=== PATIENT | male | born 1965 | race Caucasian/White ===

== ENCOUNTER → 2019-08-17 | Outpatient (CLI) | payer OTHER ==
--- NOTE | 2019-08-17 15:28 | Diagnostic Imaging Report ---
CLINICAL INDICATION: Patient has chronic low back pain. EXAM: MRI of the lumbar spine performed without IV contrast. Sagittal T2, sagittal T1, sagittal T2 fat-sat, and axial T2. COMPARISON: None. FINDINGS: There is questionable pars defect involving the right L5 region. Otherwise, lumbar spine has normal alignment with no acute fracture or dislocation. There are Modic type II degenerative signal changes involving the L3-L4 and L4-L5 endplates. The visualized portions of the distal thoracic spinal cord, conus medullaris, and cauda equina nerve roots are unremarkable. The conus medullaris tip is seen at the L1-L2 intervertebral level. There is no significant paraspinal soft tissue abnormality. There are degenerative spurs seen throughout the lumbar spine and lower lumbar spine facet arthropathy. L1-L2: There is mild bilateral facet arthropathy. There is mild diffuse disc bulge. There is no significant central spinal canal or neural foramen narrowing. L2-L3: There is a mild diffuse disc bulge and mild bilateral facet arthropathy. There is jorp-nf-baigzdkj bilateral neural foramen narrowing. There is no significant central canal narrowing. L3-L4: There is a diffuse disc bulge with dnejtatc-th-ygghlm loss of intervertebral disc height and hypertrophic far left lateral disc spurs. There is moderate bilateral facet arthropathy. There is roughly kcrl-uk-fqrsrrpo central canal stenosis. There is severe bilateral neural foramen narrowing. L4-L5: There is diffuse disc bulge with severe loss of intervertebral disc height and moderate bilateral facet arthropathy. There is no significant central canal narrowing. There is yosffnkz-ej-dwbpgn right neural foramen narrowing and iwpy-os-nggeqvof left neural foramen narrowing. L5-S1: There is no significant posterior disc bulge. Again seen possible right pars defect. There is severe right facet arthropathy/hypertrophy and mxiq-bd-lxuksvbf left facet arthropathy. There is no significant central canal narrowing. There is mild left neural foramen narrowing and no significant right neural foramen narrowing. IMPRESSION: 1: There is a possible right L5 pars defect. There is no significant listhesis at the L5-S1 level. X-ray of the lumbar spine with oblique views would help better evaluate. 2: Multilevel lumbar spine degenerative disease, as described above. Dictated by: Dictated on workstation # [id number]
== END ==
LOC: RAD 14:34
PROVIDERS: ATTEND Nurse Practitioner
DX: M43.17 Spondylolisthesis, lumbosacral region (principal); M47.816 Spondylosis without myelopathy or radiculopathy, lumbar region; M48.07 Spinal stenosis, lumbosacral region; M51.26 Other intervertebral disc displacement, lumbar region; M51.36 Other intervertebral disc degeneration, lumbar region
CPT/HCPCS: 72148